=== PATIENT | female | born 1980 | race Caucasian/White ===

== ENCOUNTER → 2017-10-02 | Outpatient (CLI) | payer OTHER | LOC: FIMAGING 11:45 | PROVIDERS: ATTEND Obstetrics & Gynecology | DX: O09.522 Supervision of elderly multigravida, second trimester (principal); O36.62X0 Maternal care for excessive fetal growth, second trimester, not applicable or unspecified; Z3A.21 21 weeks gestation of pregnancy; Z98.891 History of uterine scar from previous surgery ==

== ENCOUNTER 2018-02-05 05:31 | Inpatient (IN) | payer OTHER ==
[2018-02-05] MEDS ORDERED: LR 500 ML IV ONE (05:39)
[2018-02-05] MEDS ORDERED: ceFAZolin 2 GM/DEXTROSE 100 ML IV ONE (05:39)
[2018-02-05] MEDS ORDERED: CITRIC ACID/SODIUM CITRATE 30 ML UDCUP PO ONE (05:39)
[2018-02-05] MEDS ORDERED: LR 1,000 ML IV SCH (06:00)
[2018-02-05 06:05] LABS: PLATELET COUNT 98 10^3/uL (150-400)
--- NOTE | 2018-02-05 07:31 | PDGENHP ---
History & Physical Chief Complaint: IUP @ 39 weeks with previous c/s for RCS and request for sterilization History of Present Illness: 37 y/o @ 39 weeks with PIETER 02/12/18 by u/s at 8 2/7 weeks with previous c/s for breech and LGA who desires RCS and requests permanent sterilization, family status is complete. complicated by AMA, negative NIPT. Previous c/s for breech and LGA; growth u/s in third trimester revealed EFW >90% with normal SHANICE. Platelets being followed, <100 but stable. She has breast implants, desires to breastfeed. She developed anemia of and tolerating iron. Received Tdap. GBS culture is negative. PNLs: A+, Ab negative; RPR NR; Rubella immune; HBaAg negative; HIV negative; Trio screen neg 2013; Standardf panel neg 07/21; UA/cx negative; Pap, GC/CT cx's all negative; Innatal negative; AFP negative; H/H 11.7/33.9; 1hr GTT 80; GBS negative Pertinent Past, Social, Family History: PObHx: 09/2014-PCS at 39 weeks secondary to breech, viable female weighing 9-4. PGynHx: Menarche at age 13; cycles every 28 days x 4 days; no h/o abn pap smears or STDs. PMHx: Unremarkable. PSHx: PCS in 2013; breast implants in 2011; wisdom teeth extraction at age 17. FamHx: MGF with prostate Ca; MGM with lymphoma. SocHx: Pt is and lives with her and their daughter; denies any alcohol , tobacco and illicit drug use Relevant Physical Exam: WN, WD female. Alert and oriented x 3. CV: RRR without murmur. Resp: LCTA b/l. Abd: Gravid, nontender, nondistened, active BS. Pelvic: Def. Ext: Normal to inspection without calf edema or tenderness Cardiorespiratory Assessment: A/P: 37 y/o @ 39 weeks with previous c/s for RCS, declines trial of labor and request for permanent sterilization, family status is complete. -Admit to L&D. -Consents on chart and reviewed with pt; pt is aware of risks and wants to proceed with surgery and states family status is complete. -Abx special education bus driver to OR. -SCDs for DVT prophylaxis
[2018-02-05] MEDS ORDERED: morphINE PF 5 MG/10 ML INJ ONE (07:51)
[2018-02-05] MEDS ORDERED: fentaNYL 100 MCG/2 ML INJ ONE (07:51)
[2018-02-05] MEDS ORDERED: PHENYLEPHRINE HCL 100 MCG/ML SYR ONE ×2 (08:24→08:29)
[2018-02-05] MEDS ORDERED: DEXAMETHASONE 4 MG/ML VIAL ONE ×2 (08:29)
[2018-02-05] MEDS ORDERED: OXYTOCIN 100 UNITS/10 ML VIAL ONE (08:29)
[2018-02-05] MEDS ORDERED: ONDANSETRON 4 MG/2 ML VIAL ONE ×3 (08:29→11:35)
[2018-02-05] MEDS ORDERED: NALOXONE HCL 0.4 MG/ML INJ IVP PRN (09:58)
[2018-02-05] MEDS ORDERED: ONDANSETRON 4 MG/2 ML VIAL IVP PRN (09:58)
[2018-02-05] MEDS ORDERED: PHENYLEPHRINE HCL 100 MCG/ML SYR IVP PRN (09:58)
--- NOTE | 2018-02-05 10:07 | PREANESOB ---
Obstetric Pre-Anesthesia Info - General Info Proposed Procedure: Repeat C Section and bilateral tubal ligation. : 2 Para: 1 PIETER: 02/12/18 Gestational Age: 39 week(s) and 0 day(s) - Info Status: Full Term Monitors: External FHR Baseline (bpm): 120 FHR Pattern: Reassuring - Labor Status Indications for Current Section: Elective/Repeat Labor Epidural: No Anesthesia ROS: Prior breast surgery, wisdom teeth removal, and C Section for breech. Allergies/Adverse Reactions: Allergy/AdvReac Type Severity Reaction Status Date / Time No Known Allergies Allergy Unverified 09/29/14 08:34 Home Medications: Medication Instructions Recorded Hydrocodone/APAP 5/325 [Guinda 1 - 2 tab PO Q4 PRN #30 tab 10/02/14 5/325 (*)] Ibuprofen [Motrin (*)] 600 mg PO Q6 PRN #30 tab 10/02/14 Iron Polysacch/Iron Heme Polyp 28 mg PO DAILY #30 tab 10/02/14 [Bifera] Visit Medications: Generic Name Dose Route Start Last Admin Trade Name Freq PRN Reason Stop Dose Admin Diphenhydramine HCl 25 - 50 mg 02/05/18 09:58 Benadryl Injection IVP 02/06/18 09:57 Q6HRS PRN Itching Lactated Ringer's 1,000 mls @ 125 mls/hr 02/05/18 06:00 Lr IV 02/06/18 05:59 CONT SHAUNNA Naloxone HCl 0.4 mg 02/05/18 09:58 Narcan IVP 02/06/18 10:00 PRN PRN respiratory depression Ondansetron HCl 4 mg 02/05/18 09:58 Zofran IVP 02/06/18 09:57 Q4HRS PRN Nausea/Vomiting, Can't Take PO Phenylephrine HCl 100 mcg 02/05/18 09:58 Neosynephrine IVP 02/05/18 10:58 Q1M PRN Hypotension Discontinued Medications Generic Name Dose Route Start Last Admin Trade Name Freq PRN Reason Stop Dose Admin Citric Acid/Sodium Citrate 30 ml 02/05/18 05:39 Bicitra PO 02/05/18 05:40 ONCALL ONE Dexamethasone Confirm 02/05/18 08:29 Decadron Injection Administered 02/05/18 08:30 Dose 4 mg .ROUTE .STK-MED ONE Dexamethasone Confirm 02/05/18 08:29 Decadron Injection Administered 02/05/18 08:30 Dose 4 mg .ROUTE .STK-MED ONE Fentanyl Confirm 02/05/18 07:51 Sublimaze Administered 02/05/18 07:52 Dose 100 mcg .ROUTE .STK-MED ONE Cefazolin Sodium/Dextrose 100 mls @ 200 mls/hr 02/05/18 05:39 02/05/18 07:38 Ancef 2 Gm IV 02/05/18 06:08 100 mls ONCALL ONE Administration Protocol Lactated Ringer's 500 mls @ 0 mls/hr 02/05/18 05:39 Lr IV 02/05/18 05:40 ONCE ONE As Directed Morphine Sulfate Confirm 02/05/18 07:51 Morphine Pf 5 Mg/10 Ml Administered 02/05/18 07:52 Dose 5 mg .ROUTE .STK-MED ONE Ondansetron HCl Confirm 02/05/18 08:29 Zofran Administered 02/05/18 08:30 Dose 4 mg .ROUTE .STK-MED ONE Ondansetron HCl Confirm 02/05/18 08:29 Zofran Administered 02/05/18 08:30 Dose 4 mg .ROUTE .STK-MED ONE Oxytocin Confirm 02/05/18 08:29 Pitocin Administered 02/05/18 08:30 Dose 100 units .ROUTE .STK-MED ONE Phenylephrine HCl Confirm 02/05/18 08:24 Neosynephrine Administered 02/05/18 08:25 Dose 2,000 mcg .ROUTE .STK-MED ONE Phenylephrine HCl Confirm 02/05/18 08:29 Neosynephrine Administered 02/05/18 08:30 Dose 1,000 mcg .ROUTE .STK-MED ONE - Anesthesia History Response to Local Anesthetics: Normal Anesthesia & Operative History: No Prior Problems Family Anesthesia History: Negative - Social History Substance Use/Abuse: Denies - Vital Signs Latest Vital Signs (Nursing): Temp Pulse Resp BP Pulse Ox 36.6 C 84 19 91/64 L 97 02/05/18 07:30 02/05/18 07:30 02/05/18 09:35 02/05/18 09:35 02/05/18 09:35 Blood Pressure: 125/79 Heart Rate: 64 Height/Weight (Nursing): Height 167.64 cm Weight 73.936 kg - Focused Exam Neck exam: FROM Mallampati Score: Class 3 Mouth exam: normal dental/mouth exam Pulmonary: no respiratory distress Cardiovascular: regular rate and rhythym Labs: 02/05/18 05:50 Patient ABO/Rh A POSITIVE 02/05/18 05:50 - Plan Anesthetic Plan: SAB Consent Signed and on Chart: Yes Patient/Guardian Understands and Agrees to Plan: Yes Urgent/Emergent Case: Yung julian completed preop but documented later for safe timely pt care
--- NOTE | 2018-02-05 10:08 | POSTANESTH ---
Post Anesthetic Evaluation Cardiovascular Status: Normal, Stable, Similar to Pre-Op Cond Respiratory Status: Normal, Stable, Similar to Pre-op Cond. Level of Consciousness/Mental Status: Can Participate in Eval, Alert and Oriented Pain Control: Adequate, Prn Tx Ordered Nausea/Vomiting Control: Adequate, Prn Tx Ordered Complications Possibly Related to Anesthesia: None Noted
[2018-02-05] MEDS ORDERED: LACTULOSE 20 GM/30 ML UDCUP PO PRN (10:21)
[2018-02-05] MEDS ORDERED: DOCUSATE SODIUM 100 MG CAP PO PRN (10:21)
[2018-02-05] MEDS ORDERED: PROMETHAZINE HCL 25 MG/ML INJ IVP PRN (10:21)
[2018-02-05] MEDS ORDERED: SIMETHICONE 80 MG TAB CHEW PO PRN (10:21)
[2018-02-05] MEDS ORDERED: MAGNESIUM HYDROXIDE 30 ML UDCUP PO PRN (10:21)
[2018-02-05] MEDS ORDERED: BISACODYL 10 MG SUPP PR PRN (10:21)
[2018-02-05] MEDS ORDERED: POLYETHYLENE GLYCOL 3350 17 GM PKT PO PRN (10:21)
--- NOTE | 2018-02-05 10:25 | OBDEL ---
Info Type: Repeat Presentation at Delivery: Vertex L&D Analgesia/Anesthesia Type: Spinal GBS+: No Intrapartum Medications: Discontinued Medications Generic Name Dose Route Start Last Admin Trade Name Reginald PRN Reason Stop Dose Admin Cefazolin Sodium/Dextrose 100 mls @ 200 mls/hr 02/05/18 05:39 02/05/18 07:38 Ancef 2 Gm IV 02/05/18 06:08 100 mls ONCALL ONE Administration Protocol - Care Provider Camera Repairer/DRIVER LICENSE TECHNICIAN: Debbie Trivedi - Hospital Course Intrapartum: 02/05/18 10:23 IUP @ 39 weeks with previous c/s secondary to breech who desires RCS, declines trial of labor and requests permanent sterilization-family status is complete. AMA with negative NIPT. LGA fetus with EFW >90%. Indications for Delivery: Elective (Previous c/s, declines trial of labor) Operative Report - Delivery Pre-op Diagnoses: IUP @ 39 weeks with previous c/s who desires RCS, declines a trial of labor; request for permanent sterilization-family status is complete Post-op Diagnoses: IUP @ 39 weeks with previous c/s who desires RCS, declines a trial of labor; request for permanent sterilization-family status is complete History of Prior Section: Yes Number of Prior Sections: 1 Indications for Prior Section: Breech Indications for Current Section: Elective/Repeat (Declines trial of labor) Procedure: Scheduled, Low Transverse, Tubal Ligation (Modified [place]) Surgeon: Shiloh Villafuerte Director Global Strategic Publisher Sales: Olga Shannon Anesthesiologist: Phillip Cifuentes Complications: None Findings: A viable male infant in cephalic presentation born at 0835 with 8 and 8 Apgars weighing 10-2. Delayed cord clamping x 60 sec. Cord clamped x 2 and then cut. to waiting DRIVER LICENSE TECHNICIAN. Cord blood obtained. Placenta delivered intact spontaneously with 3-vc. Grossly normal appearing uterus, tubes and ovaries. Specimen(s)/Path: Fallopian Tube(s) (Portions of b/l tubes) IV Fluid (ml): 3,200 EBL: 800 cc UO: 50 cc clear urine Data PIETER: 02/12/18 Gestational Age: 39 week(s) and 0 day(s) [place] Delivery Date: 02/05/18 Delivery Time: 08:35 Sex of Infant: Male Score (1 Min): 8 Score (5 Min): 8 ICD10 Worksheet Patient Problems: Problems Problem Status Onset Status post repeat low transverse section Acute Encounter for female sterilization procedure Acute Previous delivery affecting Acute
[2018-02-05] MEDS ORDERED: KETOROLAC 30 MG/1 ML SDV ONE (10:41)
[2018-02-05] MEDS: KETOROLAC 30 MG/1 ML SDV IVP PRN ×2 (10:47→20:21)
[2018-02-05] MEDS ORDERED: PHENYLEPHRINE 10 MG/ML SDV IV ONE (12:15)
[2018-02-05] MEDS ORDERED: PROMETHAZINE HCL 25 MG/ML INJ IVP ONE (12:15)
[2018-02-05] MEDS: SENNOSIDES/DOCUSATE SODIUM TAB PO SCH (20:22)
[2018-02-05] MEDS: IRON POLYSAC/IRON HEME 28 MG TAB PO SCH (20:22)
[2018-02-06] MEDS: KETOROLAC 30 MG/1 ML SDV IVP PRN ×2 (02:01→08:29)
[2018-02-06] MEDS: SENNOSIDES/DOCUSATE SODIUM TAB PO SCH ×2 (08:31→22:56)
[2018-02-06] MEDS: IRON POLYSAC/IRON HEME 28 MG TAB PO SCH ×2 (08:31→21:56)
--- NOTE | 2018-02-06 08:57 | OBPP ---
Progress Note Assessment/Plan: Assessment: 37 y/o s/p repeat C/S with BTL at 39 weeks ega POD #1 Anemia: HCT today 29.4 (35.6 on admission) Plan: Routine post care BID ferrous sulfate Will d/c rodriguez and remove dressing this am Encourage ambulation as tolerated 02/06/18 08:54 02/06/18 13:25 02/06/18 13:26 Objective: 02/06/18 02:30 Patient ABO/Rh A POSITIVE 02/05/18 05:50 Temp Pulse Resp BP Pulse Ox 36.4 C 61 18 90/48 L 99 02/06/18 08:49 02/06/18 08:49 02/06/18 08:49 02/06/18 08:49 02/06/18 08:49 Uterine Position/Fundal Height: At Umbilicus Uterine Tone: Firm Physical Exam - Physical Exam EENT: PERRL/EOMI, normal ENT inspection Neck: non-tender Respiratory: chest non-tender Cardiac/Chest: normal peripheral pulses Abdomen: hypoactive bowel sounds, flatus, dressing (clean and dry) Extremities: normal range of motion Back: Normal inspection Skin: normal color, warm/dry Neuro/Psych: no motor/sensory deficits, alert, normal mood/affect, oriented x 3
[2018-02-06] MEDS: IBUPROFEN 600 MG TAB PO PRN ×2 (16:11→21:56)
[2018-02-06] MEDS: HYDROCODONE/APAP 5/325 TAB PO PRN ×2 (17:11→17:53)
[2018-02-07] MEDS: HYDROCODONE/APAP 5/325 TAB PO PRN ×3 (01:17→11:34)
[2018-02-07] MEDS: IBUPROFEN 600 MG TAB PO PRN ×2 (04:03→11:34)
--- NOTE | 2018-02-07 08:33 | GOP ---
[f rep st] OPERATIVE REPORT DATE OF OPERATION: 02/05/2018 SURGEON: Shiloh Villafuerte DO LOZENGE DOUGH MIXER: ROXY Selby. ANESTHESIA: Spinal. ANESTHESIOLOGIST: Phillip Cifuentes MD. PREOPERATIVE DIAGNOSIS: 1. Intrauterine at 39 weeks with previous section. 2. Desires repeat section, declines trial of labor. 3. Request permanent sterilization, family status is complete. POSTOPERATIVE DIAGNOSIS: 1. Intrauterine at 39 weeks with previous section. 2. Desires repeat section, declines trial of labor. 3. Request permanent sterilization, family status is complete. PROCEDURE PERFORMED: Repeat low transverse section, bilateral tubal ligation. FINDINGS: A viable male , in cephalic presentation born at 0835 with 8 and 8 Apgars, weighing 10 pounds 2 ounces. Delayed cord clamping occurred x60 seconds. Cord was then clamped x2 and cut. Infant to awaiting BRAKE RELINER. Cord blood was obtained. Placenta delivered intact spontaneously with 3-vessel cord. Grossly normal-appearing uterus, tubes, and ovaries. ESTIMATED BLOOD LOSS: 800 cc. INDICATIONS: The patient is a 37-year-old, 2, para 1-0-0-1, at 39 weeks with a previous for breech and LGA who desires repeat C- section at this time, she declines a trial of labor. Patient is also requesting permanent sterilization and states family status is complete. Discussed the risks, benefits, alternatives of the procedure including, but not limited to, bleeding, infection, and damage to surrounding organs. Also discussed the risk of ectopic and failure rate with bilateral tubal ligation. Patient understands all risks of the procedure and wants to proceed with surgery at this time. Informed consents were obtained. DESCRIPTION OF PROCEDURE: The patient was taken to the operating room where spinal anesthesia was obtained without difficulty. The patient was prepped and draped in the usual sterile fashion and placed in dorsal supine position with leftward tilt. Cook catheter was then placed. A Pfannenstiel skin incision was made with the scalpel, and carried through to the underlying fascia using Bovie. The fascia was then incised in the midline and extended laterally using the Bass scissors. Hemostasis was noted. Sharmila clamps were then used to elevate the superior aspect of the fascial incision which was then elevated and the underlying rectus muscles dissected off using the Bass scissors. Attention was then turned to the inferior aspect of the fascial incision which in a similar fashion was grasped with Sharmila clamps elevated, and the underlying rectus muscles were dissected off using the Bass scissors. Rectus muscles were then dissected in the midline. The peritoneum was then identified, and entered using Metzenbaum scissors. Incision was then extended superiorly and inferiorly with good visualization of the bladder. Bladder blade was then inserted. Vesicouterine peritoneum was identified, and entered sharply with Metzenbaum scissors. Incision was then extended laterally, and the bladder flap created digitally. Bladder blade was then reinserted. The lower uterine segment was incised in transverse fashion using a scalpel. Infant's head was then delivered without difficulty. Nose and mouth were bulb suctioned. Cord clamping was delayed for 60 seconds. Cord was then clamped x2 and cut. Cord blood was obtained. was subsequently handed to [facility]. The placenta was then delivered spontaneously intact with a 3-vessel cord. Uterus was then exteriorized, and cleared of all blood, clots and debris. Uterine incision was repaired in 2 layers using 0 Vicryl suture. First layer of the uterus was closed with a running lock stitch of 0 Vicryl. Hemostasis was noted. A 2nd layer was an imbricating layer with 0 Vicryl. Again, hemostasis was noted. At this time, we turned our attention to the bilateral tubes. There was noted to be very vascular with prominent vessels in the mesosalpinx and there would be an increased risk of bleeding doing a salpingectomy. So at this time, a bilateral tubal ligation was performed via modified [place] technique. The right tube was identified and grasped with a Ellsworth clamp and a 2-3 cm knuckle of tube was formed. It was ligated at the base with double tying with 0 plain gut and the ligated portion of the right tube was then excised and the lumen was cauterized. A similar procedure was done on the left side. Portions of bilateral tubes were sent for pathologic evaluation. Both tubal ostia were visualized and noted to be hemostatic. The uterus was then returned to the abdomen. The gutters were cleared of all clots and debris. The uterine incision was visualized again and noted to be oozing so Ev was placed on the incision to achieve hemostasis. The rectus muscles were then reapproximated using 3-0 Vicryl. The fascia was then closed with 0 Vicryl in a running stitch. Hemostasis was noted. Subcuticular was then closed with 4-0 Vicryl on a Jluis needle. Patient tolerated the procedure well. There were no complications. Sponge, lap, and needle counts correct x2. The patient was then taken to the recovery room in stable condition. IV FLUIDS: 3200 cc LR. URINE OUTPUT: 50 cc of clear urine at the end of the procedure. /[id number]/MODL MTDD
[2018-02-07 11:30] VITALS: BP 97/58
[2018-02-07] MEDS: IRON POLYSAC/IRON HEME 28 MG TAB PO SCH (11:34)
--- NOTE | 2018-02-07 11:55 | OBPP ---
Progress Note Assessment/Plan: Assessment: Plan: Objective: 02/06/18 02:30 Patient ABO/Rh A POSITIVE 02/05/18 05:50 Temp Pulse Resp BP Pulse Ox 36.6 C 72 16 97/58 L 96 02/07/18 08:00 02/07/18 08:00 02/07/18 08:00 02/07/18 08:00 02/07/18 08:00
--- NOTE | 2018-02-07 11:55 | OBGCSDC ---
General Delivery Information - General Info : 2 Para: 2 Abortions: 0 Type: Repeat L&D Analgesia/Anesthesia Type: Spinal Admission Date: 02/05/18 Labs: Patient ABO/Rh A POSITIVE 02/05/18 05:50 Hct 29.4 % (38.0-47.0) L 02/06/18 02:30 - Hospital Course Intrapartum: 02/05/18 10:23 IUP @ 39 weeks with previous c/s secondary to breech who desires RCS, declines trial of labor and requests permanent sterilization-family status is complete. AMA with negative NIPT. LGA fetus with EFW >90%. - Delivery Providers Surgeon: Shiloh Villafuerte Communication Consultant: Olga Shannon Anesthesiologist: Phillip Cifuentes - Delivery Number of Prior Sections: 1 Indications for Current Section: Elective/Repeat (Declines trial of labor) Surgical Procedures: Scheduled, Low Transverse, Tubal Ligation (Modified [place] ) Intra-op Complications: None EBL: 800 cc UO: 50 cc clear urine Data PIETER: 02/12/18 Gestational Age: 39 week(s) and 2 day(s) [place] Delivery Date: 02/05/18 Delivery Time: 08:35 Sex of : Male [place] Weight (gm): 4588 g Score (1 Min): 8 Score (5 Min): 8
[2018-02-07] MEDS: SENNOSIDES/DOCUSATE SODIUM TAB PO SCH (12:03)
== END 2018-02-07 13:22 | disposition home or self-care (01) | DRG 766 ==
LOC: FLD 05:31 → FOB 11:30
PROVIDERS: ADMIT Obstetrics & Gynecology; ATTEND Obstetrics & Gynecology
PROC: 10D00Z1 Extraction of Products of Conception, Low, Open Approach (ICD-10-PCS; principal; 2018-02-05)
PROC: 0UB70ZZ Excision of Bilateral Fallopian Tubes, Open Approach (ICD-10-PCS; principal; 2018-02-05)
DX: O34.219 Maternal care for unspecified type scar from previous cesarean delivery (principal); O99.02 Anemia complicating childbirth; Z30.2 Encounter for sterilization; Z3A.39 39 weeks gestation of pregnancy; Z37.0 Single live birth
CPT/HCPCS: J0690; J1100; J1885; J2274; J2370; J2405; J2550; J2590; J3010